=== PATIENT | female | born 1980 | race Two or more races ===

== ENCOUNTER 2018-09-24 17:22 | Emergency (ER) | payer MEDICAID, OTHER ==
[~2018-09-24] VITALS: Ht 160 cm; Wt 71.2 kg
[2018-09-24 18:39] VITALS: BP 129/88
[2018-09-24] MEDS ORDERED: BACLOFEN 10 MG TAB PO ONE (19:15)
[2018-09-24] MEDS ORDERED: HYDROcodone-ACET 10/325MG TAB PO ONE (19:15)
== END 2018-09-24 19:37 | disposition home or self-care (01) ==
LOC: EDBD 17:22 → ER 17:32
DX: S60.051A Contusion of right little finger without damage to nail, initial encounter (principal); S60.212A Contusion of left wrist, initial encounter; S70.01XA Contusion of right hip, initial encounter; M62.838 Other muscle spasm; Z88.5 Allergy status to narcotic agent; V49.49XA Driver injured in collision with other motor vehicles in traffic accident, initial encounter; Y93.89 Activity, other specified; Y99.8 Other external cause status; Y92.488 Other paved roadways as the place of occurrence of the external cause
CPT/HCPCS: 71045; 73110; 73130; 73502